=== PATIENT | female | born 1975 | race Caucasian/White ===

== ENCOUNTER 2016-04-26 15:45 | Emergency (ER) | payer OTHER ==
[~2016-04-26] VITALS: Ht 162.6 cm; Wt 75.0 kg
[2016-04-26] MEDS ORDERED: DULO20CA30 PO (15:51)
[2016-04-26] MEDS ORDERED: CefTRIAXone SODIUM 1 GM/VIAL IM ONE (16:45)
[2016-04-26] MEDS ORDERED: HYDROCODONE/ACETAMINOPHEN 5-325 MG TABLET PO ONE (16:45)
[2016-04-26] MEDS ORDERED: DEXAMETHASONE SOD PHOS 4 MG/ML VIAL IM ONE (16:45)
[2016-04-26] MEDS ORDERED: LIDOCAINE HCL/PF 1% 2 ML VIAL IM ONE (16:45)
[2016-04-26 17:14] VITALS: BP 110/77
== END 2016-04-26 18:05 | disposition home or self-care (01) ==
LOC: EMS 15:46
DX: J02.0 Streptococcal pharyngitis (principal); R51 Headache; F17.210 Nicotine dependence, cigarettes, uncomplicated
CPT/HCPCS: 96372; 99284; J0696; J1100; J3490

== ENCOUNTER 2018-02-17 23:03 | Emergency (ER) | payer OTHER ==
[~2018-02-17] VITALS: Ht 149.9 cm; Wt 72.7 kg
[~2018-02-17 23:03] MED LIST: DULO20CA30 PO
[2018-02-17] MEDS ORDERED: CYAN50008 PO (23:29)
[2018-02-17] MEDS ORDERED: VITA100024 PO (23:29)
[2018-02-17] MEDS ORDERED: BUSP5TAB3 PO (23:29)
[2018-02-17] MEDS ORDERED: IBUP-1554 PO (23:29)
[2018-02-17] MEDS ORDERED: FERR325T22 PO (23:29)
[2018-02-18] MEDS ORDERED: KETOROLAC TROMETHAMINE 30 MG/ML VIAL IM ONE (00:15)
[2018-02-18] MEDS ORDERED: METOCLOPRAMIDE HCL 5 MG/ML 2 ML VIAL IM ONE (00:15)
[2018-02-18] MEDS ORDERED: DiphenhydrAMINE HCL 50 MG/ML VIAL IM ONE (00:15)
[2018-02-18 01:11] VITALS: BP 121/76
== END 2018-02-18 01:26 | disposition home or self-care (01) ==
LOC: EMS 23:04
DX: G43.909 Migraine, unspecified, not intractable, without status migrainosus (principal); F41.9 Anxiety disorder, unspecified; F32.9 Major depressive disorder, single episode, unspecified; F17.210 Nicotine dependence, cigarettes, uncomplicated; Z98.51 Tubal ligation status
CPT/HCPCS: 96372; 99283; J1200; J1885; J2765

== ENCOUNTER 2018-07-02 22:43 | Emergency (ER) | payer OTHER ==
[~2018-07-02] VITALS: Ht 149.9 cm; Wt 68.2 kg
[~2018-07-02 22:43] MED LIST changes: +BUSP5TAB3 PO; +CYAN50008 PO; -DULO20CA30 PO; +FERR325T22 PO; +IBUP-1554 PO; +VITA100024 PO
[2018-07-02 23:32] LABS: BASOPHILS % (AUTO) 0.5 % (0.0-2.0); EOSINOPHILS % (AUTO) 2.4 % (1.0-6.0); HEMOGLOBIN 13.2 g/dL (12.0-16.0); LYMPHOCYTES # (AUTO) 1.9 K/uL (1.0-4.8); LYMPHOCYTES % (AUTO) 25.8 % (22.0-44.0); MEAN CORPUSCULAR HEMOGLOBIN 31.9 pg (26.0-34.0); MEAN CORPUSCULAR HGB CONC 34.7 G/dL (31.0-37.0); MEAN CORPUSCULAR VOLUME 92 fL (80-100); MONOCYTES # (AUTO) 0.5 K/uL (0.1-1.0); MONOCYTES % (AUTO) 6.1 % (2.0-9.0); NEUTROPHILS # (AUTO) 4.8 K/uL (1.8-7.7); NEUTROPHILS % (AUTO) 65.2 % (40.0-70.0); PLATELET COUNT (AUTO) 209 K/uL (150-450); RED BLOOD CELL COUNT(AUTO) 4.14 MIL/uL (4.00-5.20); RED CELL DISTRIBUTION WIDTH 13.5 % (11.5-14.5)
[2018-07-02 23:45] LABS: ANION GAP 8 mmol/L (8-16); CARBON DIOXIDE 27 mmol/L (22-29); CHLORIDE 104 mmol/L (98-107); CREATININE 0.64 mg/dL (0.60-1.30); GLOMERULAR FILTR. RATE CALC > 60 mL/min (>60); GLUCOSE,RANDOM 95 mg/dL (70-110); POTASSIUM 3.8 mmol/L (3.5-5.1); SODIUM SERUM 139 mmol/L (136-145); UREA NITROGEN, BLOOD 13 mg/dL (7-18)
[2018-07-02] MEDS ORDERED: ONDANSETRON HCL 4 MG/2 ML VIAL ONE (23:50)
[2018-07-02 23:56] LABS: ALANINE AMINOTRANSFERASE 17 U/L (12-78); ALBUMIN 3.6 g/dL (3.4-5.0); ALKALINE PHOSPHATASE 59 U/L (46-116); ASPARTATE AMINOTRANSFERASE 16 U/L (15-37); BILIRUBIN,TOTAL 0.5 mg/dL (0.1-1.0); HCG,QUANTITATIVE 1 mIU/mL (0-6); TOTAL PROTEIN, SERUM 7.2 g/dL (6.4-8.2)
[2018-07-03] MEDS ORDERED: ONDANSETRON HCL 4 MG/2 ML VIAL IVP ONE
[2018-07-03] MEDS ORDERED: MECLIZINE HCL 25 MG TABLET PO ONE (00:15)
[2018-07-03] MEDS ORDERED: LORazepam 1 MG TABLET PO ONE (00:15)
[2018-07-03] MEDS ORDERED: ACETAMINOPHEN 500 MG TABLET PO ONE (00:15)
[2018-07-03 02:20] VITALS: BP 116/65
== END 2018-07-03 02:31 | disposition home or self-care (01) ==
LOC: EMS 22:44
DX: R42 Dizziness and giddiness (principal); H93.12 Tinnitus, left ear; F41.9 Anxiety disorder, unspecified; H57.89 Other specified disorders of eye and adnexa; F32.9 Major depressive disorder, single episode, unspecified; G43.909 Migraine, unspecified, not intractable, without status migrainosus; F17.210 Nicotine dependence, cigarettes, uncomplicated; Z98.51 Tubal ligation status
CPT/HCPCS: 36415; 80053; 84702; 85025; 93005; 96374; 99284; 99406; J2405